=== PATIENT | male | born 1995 | race Caucasian/White ===

== ENCOUNTER → 2016-09-27 | Outpatient (CLI) | payer OTHER ==
--- NOTE | 2016-09-27 09:45 | MRI ---
EXAM DESCRIPTION: MRI Cervical Spine CLINICAL HISTORY: RADICULOPATHY. Noncontrast. COMPARISON: None. TECHNIQUE: Multiplanar high-field MRI, multiple sequences, non-contrast FINDINGS: C2-3: Minimal disc desiccation. Disc space maintained with no bulging. Canal and neural foramina are patent. Normal facets. C3-4: Minimal disc desiccation. Tiny right posterior paracentral bulge and right uncinate spur. Mild right neural foraminal narrowing. Left neuroforamen and canal are patent. Normal facets. C4-5:Minimal disc desiccation. Disc space maintained with no bulging. Canal and neural foramina are patent. Normal facets. C5-6:Minimal disc desiccation. Disc space maintained with no bulging. Canal and neural foramina are patent. Normal facets. Normal signal in the remaining cervical discs with no bulging. Disc spaces preserved. Canal and neural foramina are patent. Facets are normal. Disc desiccation T1-2, T2-3, and T3-4 discs. Tiny posterior bulging. The lowest disc is abutting the ventral cord. Disc space narrowing more at T2-3. Canal and neural foramina are patent. No cord compression or cord edema. Spine is normally lordotic. Atlantoaxial joint is unremarkable. Base of the cerebellar tonsils is at the level of the foramen magnum. Paravertebral soft tissues are unremarkable. Vertebral bodies are not compressed at any level. Normal marrow signal in the remaining vertebral bodies and the posterior elements. IMPRESSION: 1. Small uncinate spur and tiny right paracentral disc bulge at C3-4 with minimal narrowing of the right neural foramen. Disc desiccation. 2. Disc desiccation C2-3 C4-5 and C5-6. Also upper thoracic spine. Tiny posterior bulges in the upper thoracic spine with disc space narrowing; T3-4 disc abutting the cord. 3. No canal or neuroforaminal stenosis, no significant facet degeneration, at any level. Electronically signed by: Jamie Colvin MD 09/27/2016 9:43 AM CDT Workstation: [id number]
== END ==
LOC: MRI 08:30
PROVIDERS: ATTEND Family Medicine
DX: M54.12 Radiculopathy, cervical region (principal)